=== PATIENT | female | born 1955 | race Two or more races ===

== ENCOUNTER 2019-04-29 15:06 | Emergency (ER) | payer MEDICARE, BC ==
[~2019-04-29] VITALS: Ht 162.6 cm; Wt 106.6 kg
[2019-04-29 14:42] VITALS: BP 141/83
[~2019-04-29 15:06] MED LIST: LEVOTHYROXINE75 MCG ORAL
--- NOTE | 2019-04-29 15:18 | NUR ---
ED Nurse Note: PT. AAOX4. AMBULATORY. PT. WALKED IN TO ER FROM HOME WITH DAUGHTER DUE TO FLU-LIKE SYMPTOMS: COUGH AND LOW-GRADE FEVER(ON AND OFF SINCE SUNDAY). DENIES RECNT TRAVEL. TAKES TAMIFLU AND TOOK 1000MG OF TYLENOL PRIOR TO ER ARRIVAL. NO FLU SHOT RECEIVED Addendum: 04/29/19 at 1531 by [facility] ED Nurse Note: MASK PROVIDED UPON BEING RGISTERD AND DROPLET PRECAUTION INITIATED
--- NOTE | 2019-04-29 16:41 | Diagnostic Imaging Report ---
Indication: Cough Technique: One view of the chest Comparison: none Findings: Lungs and pleural spaces are clear. Heart size is normal. Impression: No acute process
[2019-04-29] MEDS ORDERED: AMOXICILLIN500 MG ORAL (16:53)
[2019-04-29 17:00] VITALS: BP 142/75
--- NOTE | 2019-04-29 17:00 | NUR ---
ER DISCHARGE NOTE: Patient is cleared to be discharged per ERMD, pt is aox4, on room air, with stable vital signs. pt was given dc and prescription instructions, pt was able to verbalize understanding, pt id band removed. pt is able to ambulate with steady gait. pt took all belongings. pt. still wearing a mask upon being discharged
--- NOTE | 2019-04-29 18:37 | Emergency Room Report ---
History of Present Illness General Chief Complaint: Flu Like Symptoms Source: Patient Present Illness HPI 64-year-old female presents the ED for evaluation. States for the last 4 days she has had flulike symptoms and fever. Afebrile in triage. States she has had a cough productive for the last few days. Was prescribed Tamiflu by a family member. States she is on day 4 without symptoms improving. Was told by her family member to go get a COVID test. Denies recent travel. Denies any known contacts. No other aggravating relieving factors. Denies any other associated symptoms COVID-19 risk:Travel to affect: No Has patient experienced gomez: Yes Coronavirus symptoms experienc: Fever (T>100.4F or >38C), Cough Allergies: Coded Allergies: No Known Allergies (Unverified , 04/29/19) Patient History Past Medical History: none Past Surgical History: none Pertinent Family History: none Social History: Denies: smoking, alcohol use, drug use Now: No Immunizations: UTD Reviewed Nursing Documentation: PMH: Agreed; PSxH: Agreed Nursing Documentation-PMH Past Medical History: No History, Except For Review of Systems All Other Systems: negative except mentioned in HPI Physical Exam Vital Signs Date Time Temp Pulse Resp B/P (MAP) Pulse Ox O2 Delivery O2 Flow Rate FiO2 04/29/19 14:39 98.2 72 19 141/83 (102) 98 Room Air Sp02 EP Interpretation: reviewed, normal General Appearance: no apparent distress, alert, GCS 15, non-toxic Head: normocephalic, atraumatic Eyes: bilateral eye normal inspection, bilateral eye PERRL ENT: hearing grossly normal, normal pharynx, no angioedema, normal voice Neck: full range of motion, supple/symm/no masses Respiratory: chest non-tender, lungs clear, normal breath sounds, speaking full sentences Cardiovascular #1: regular rate, rhythm, no edema Cardiovascular #2: 2+ carotid (R), 2+ carotid (L), 2+ radial (R), 2+ radial (L) , 2+ dorsalis pedis (R), 2+ dorsalis pedis (L) Gastrointestinal: normal bowel sounds, non tender, soft, non-distended, no guarding, no rebound Rectal: deferred Genitourinary: normal inspection, no CVA tenderness Musculoskeletal: back normal, normal range of motion, gait/station normal, non- tender Neurologic: alert, motor strength/tone normal, oriented x3, sensory intact, responsive, speech normal Psychiatric: judgement/insight normal, memory normal, mood/affect normal, no suicidal/homicidal ideation Reflexes: 3+ bicep (R), 3+ bicep (L), 3+ tricep (R), 3+ tricep (L), 3+ knee (R) , 3+ knee (L) Lymphatic: no adenopathy Medical Decision Making Diagnostic Impression: Primary Impression: Upper respiratory infection Qualified Codes: J06.9 - Acute upper respiratory infection, unspecified ER Course Hospital Course 64 yo F presents with cough, fever. Differential diagnoses include: URI, pharyngitis, otitis media, asthma Clinical course Patient placed in isolation tent. Protective measures taken including and 95 mask, sterile gown, goggles. . After initial history, physical exam reveals a female in no acute distress. Bilateral TM unremarkable. No pharyngeal erythema. No tonsillar exudates. No lymphadenopathy. lungs clear. abdomen soft. I ordered flu swab, chest x-ray Influenza negative. Chest x-ray shows no obvious infiltrate. We will discharge with antibiotics. We will also send gomez test. I explained to patient that this is a send out test which can take 4 to 5 days to come back. In the meanwhile patient will need to self quarantine including her family members. Patient states she understands. Diagnosis - upper respiratory infection Stable and discharged home with Rx Amoxicillin. we will followup on COVID testing. Instructed to followup with PMD. Return to ED if symptoms recur or worsen Chest X-Ray Diagnostic Results Chest X-Ray Diagnostic Results : Chest X-Ray Ordered: Yes # of Views/Limited/Complete: 1 View Indication: Other - cough EP Interpretation: Yes Interpretation: no consolidation, no effusion, no pneumothorax, no acute cardiopulmonary disease Impression: No acute disease Electronically Signed by: Electronically signed by Merritt Templeton MD Last Vital Signs Date Time Temp Pulse Resp B/P (MAP) Pulse Ox O2 Delivery O2 Flow Rate FiO2 04/29/19 17:00 98.0 88 20 142/75 99 Room Air Status: improved Disposition: HOME, SELF-CARE Condition: Stable Scripts Amoxicillin* (AMOXIL*) 500 Mg Capsule 500 MG ORAL THREE TIMES A DAY, #21 CAP Prov: Merritt Templeton MD 04/29/19 Referrals: NOT CHOSEN IPA/,REFERRING (PCP) Patient Instructions: Upper Respiratory Infection, Adult Additional Instructions: we are sending covid-19 test. this will take 4-5 days to come back. in the meanwhile, you need to self-quarantine. encourage close contacts to self- quarantine as well. Merrtit Templeton MD Apr 29, 2019 18:37
== END 2019-04-29 17:00 | disposition home or self-care (01) ==
LOC: EMR 15:30
DX: J06.9 Acute upper respiratory infection, unspecified (principal); B97.29 Other coronavirus as the cause of diseases classified elsewhere
CPT/HCPCS: 71045; 86710; 99283